=== PATIENT | male | born 1970 | race Caucasian/White ===

== ENCOUNTER 2018-11-05 19:05 | Emergency (ER) | payer OTHER ==
[~2018-11-05] VITALS: Ht 170.2 cm; Wt 68.2 kg
[2018-11-05] MEDS ORDERED: LISI-662 PO (20:29)
[2018-11-05] MEDS ORDERED: HYDR-2924 PO (20:29)
[2018-11-05] MEDS ORDERED: CARV25 PO (20:29)
[2018-11-05] MEDS ORDERED: SEVE800 PO (20:29)
[2018-11-05] MEDS ORDERED: AMLO-511 PO (20:29)
[2018-11-05 20:59] LABS: GLUCOSE,POINT OF CARE 142 MG/DL (70-110)
[2018-11-05] MEDS ORDERED: LORazepam 2 MG/ML VIAL IM ONE (21:00)
[2018-11-05 21:01] LABS: BASOPHILS % (AUTO) 0.9 % (0.0-2.0); EOSINOPHILS % (AUTO) 2.7 % (1.0-6.0); HEMATOCRIT 36.2 % (41-53); HEMOGLOBIN 12.2 g/dL (13.5-17.5); LYMPHOCYTES # (AUTO) 0.9 K/uL (1.0-4.8); MEAN CORPUSCULAR HEMOGLOBIN 28.5 pg (26.0-34.0); MEAN CORPUSCULAR HGB CONC 33.6 G/dL (31.0-37.0); MEAN CORPUSCULAR VOLUME 85 fL (80-100); MONOCYTES # (AUTO) 0.5 K/uL (0.1-1.0); MONOCYTES % (AUTO) 6.7 % (2.0-9.0); NEUTROPHILS # (AUTO) 5.5 K/uL (1.8-7.7); NEUTROPHILS % (AUTO) 77.7 % (40.0-70.0); PLATELET COUNT (AUTO) 100 K/uL (150-450); RED BLOOD CELL COUNT(AUTO) 4.27 MIL/uL (4.50-5.90); RED CELL DISTRIBUTION WIDTH 15.6 % (11.5-14.5)
[2018-11-05 21:14] LABS: ANION GAP 11 mmol/L (8-16); CALCIUM, TOTAL 9.5 mg/dL (8.8-10.5); CARBON DIOXIDE 31 mmol/L (22-29); CHLORIDE 92 mmol/L (98-107); CREATININE 6.53 mg/dL (0.60-1.30); GLOMERULAR FILTR. RATE CALC 9 mL/min (>60); GLUCOSE,RANDOM 133 mg/dL (70-110); POTASSIUM 3.4 mmol/L (3.5-5.1); SODIUM SERUM 134 mmol/L (136-145); UREA NITROGEN, BLOOD 25 mg/dL (7-18)
[2018-11-05 21:20] LABS: ALANINE AMINOTRANSFERASE 20 U/L (12-78); ALBUMIN 3.9 g/dL (3.4-5.0); ALKALINE PHOSPHATASE 111 U/L (46-116); ASPARTATE AMINOTRANSFERASE 46 U/L (15-37); BILIRUBIN,TOTAL 0.9 mg/dL (0.1-1.0); LIPASE 77 U/L (73-393); PHOSPHORUS 2.3 mg/dL (2.5-4.9); TOTAL PROTEIN, SERUM 7.6 g/dL (6.4-8.2)
[2018-11-05 21:21] LABS: TROPONIN I 0.14 ng/mL (0.00-0.05)
[2018-11-05 21:28] LABS: ABG BASE EXCESS 4.8 mmol/L (-2.0-3.0); ABG HCO3 28.1 mmol/L (22.0-26.0); ABG METHEMOGLOBIN 0.3 % (0.0-1.5); TEMPERATURE, FAHRENHEIT, BG 98.6 FAHREN (96.0-98.6)
[2018-11-05 21:34] LABS: B-TYPE NATRIURETIC PEPTIDE 1510 pg/mL (0-100)
[2018-11-05 21:34] LABS: ABG A-A DIFF O2 62.5 mmHg (10-20.0); ABG CARBOXYHEMOGLOBIN 1.1 % (0.0-1.5); ABG OXYGEN CONTENT 13.6 mL/dL (15.0-23.0); ABG OXYHEMOGLOBIN 76.8 % (94.0-100.0); ABG PCO2 40 mmHg (35-45); ABG PH 7.474 (7.35-7.450); ABG TOTAL HEMOGLOBIN 12.6 G/dL (12.0-18.0)
[2018-11-05 21:37] LABS: ABG OXYGEN SATURATION 77.9 % (95.0-98.0); PO2, ARTERIAL BG 39.8 mmHg (88.0-96.0); SITE, BLOOD GAS RT RADIAL
[2018-11-05 21:38] LABS: SOURCE, BLOOD GAS MIXED VENOUS
[2018-11-05 21:47] LABS: LACTIC ACID 3.1 mmol/L (0.4-2.0)
[2018-11-05 22:43] VITALS: BP 134/68
== END 2018-11-05 22:51 | disposition home or self-care (01) ==
LOC: EMS 19:05
DX: F41.9 Anxiety disorder, unspecified (principal); N18.6 End stage renal disease; Z99.2 Dependence on renal dialysis; Z88.8 Allergy status to other drugs, medicaments and biological substances; Z79.899 Other long term (current) drug therapy
CPT/HCPCS: 36415; 71045; 80053; 82140; 82805; 82962; 83605; 83690; 83735; 83880; 84100; 84484; 85025; 93005; 96372; 99284; G0480; J2060

== ENCOUNTER 2018-11-06 23:45 | Emergency (ER) | payer OTHER ==
[~2018-11-06] VITALS: Ht 170.2 cm; Wt 75.0 kg
[~2018-11-06 23:45] MED LIST: AMLO-511 PO; CARV25 PO; HYDR-2924 PO; LISI-662 PO; SEVE800 PO
[2018-11-07 00:09] LABS: GLUCOSE,POINT OF CARE 114 MG/DL (70-110)
[2018-11-07] MEDS ORDERED: ALPRAZolam 1 MG TABLET PO ONE (00:45)
[2018-11-07 01:46] LABS: BASOPHILS % (AUTO) 0.5 % (0.0-2.0); EOSINOPHILS % (AUTO) 2.4 % (1.0-6.0); HEMATOCRIT 32.1 % (41-53); HEMOGLOBIN 10.8 g/dL (13.5-17.5); LYMPHOCYTES # (AUTO) 1.2 K/uL (1.0-4.8); LYMPHOCYTES % (AUTO) 16.3 % (22.0-44.0); MEAN CORPUSCULAR HEMOGLOBIN 28.9 pg (26.0-34.0); MEAN CORPUSCULAR HGB CONC 33.7 G/dL (31.0-37.0); MEAN CORPUSCULAR VOLUME 86 fL (80-100); MONOCYTES # (AUTO) 0.6 K/uL (0.1-1.0); NEUTROPHILS # (AUTO) 5.2 K/uL (1.8-7.7); NEUTROPHILS % (AUTO) 71.8 % (40.0-70.0); PLATELET COUNT (AUTO) 99 K/uL (150-450); RED BLOOD CELL COUNT(AUTO) 3.75 MIL/uL (4.50-5.90); RED CELL DISTRIBUTION WIDTH 15.3 % (11.5-14.5)
[2018-11-07 01:52] LABS: CALCIUM, TOTAL 9.6 mg/dL (8.8-10.5); CREATININE 9.48 mg/dL (0.60-1.30); POTASSIUM 3.4 mmol/L (3.5-5.1)
[2018-11-07 01:59] LABS: INR 1.1 (0.9-1.1); PROTHROMBIN TIME 11.2 SEC (9.4-11.6)
[2018-11-07 02:48] LABS: ALBUMIN 3.5 g/dL (3.4-5.0); BILIRUBIN,TOTAL 0.7 mg/dL (0.1-1.0); TOTAL PROTEIN, SERUM 6.9 g/dL (6.4-8.2)
[2018-11-07 03:15] VITALS: BP 169/64
== END 2018-11-07 03:36 | disposition home or self-care (01) ==
LOC: EMS 23:46
DX: I12.0 Hypertensive chronic kidney disease with stage 5 chronic kidney disease or end stage renal disease (principal); N18.6 End stage renal disease; R74.8 Abnormal levels of other serum enzymes; Z88.8 Allergy status to other drugs, medicaments and biological substances; Z99.2 Dependence on renal dialysis
CPT/HCPCS: 93005